=== PATIENT | male | born 1940 | race Caucasian/White ===

== ENCOUNTER → 2016-09-02 | Outpatient (CLI) | payer MEDICARE | END | disposition home or self-care (01) | LOC: GMA 10:30 | PROVIDERS: ATTEND Nurse Practitioner Family | DX: R53.83 Other fatigue (principal) ==

== ENCOUNTER 2017-05-10 14:34 | Emergency (ER) | payer MEDICARE ==
[2017-05-10] MEDS ORDERED: LIDOCAINE 1% 10 ML VIAL INJ ONE (14:58)
--- NOTE | 2017-05-10 15:28 | ED.PDOC ---
History of Present Illness - General Stated Complaint: Fall, laceration to left arm Time Seen by Provider: 05/10/17 15:26 Source: patient Exam Limitations: other - dementia - History of Present Illness Initial Comments: the patient is a 76-year-old male presenting to the emergency room after a fall in his backyard. The patient does have some dementia and some progressive weakness and dysfunction now any at home. The patient fell and apparently sustained a skin tear on a long that was on the ground. The skin tear is large and horseshoe shaped with a central laceration as well. See nurse 's note for length. This happened immediately prior to arrival. He has multiple much smaller abrasions to his elbows and fingers as well. He is ambulatory. He does have significant dementia. He does have significant hearing loss. The wound is moderately dirty. Allergies/Adverse Reactions: Allergies NO KNOWN ALLERGY Allergy (Unverified 07/30/14 09:36) Home Medications: Ambulatory Orders Citalopram Hydrobromide [CeleXA] 20 mg PO DAILY 05/10/17 Sulfa/Trimeth 800/160 (Ds) Tab [Bactrim DS Tab] 1 ea PO BID #14 tab 05/10/17 Review of Systems - Review of Systems Constitutional: States: no symptoms reported EENTM: States: no symptoms reported Respiratory: States: no symptoms reported Cardiology: States: no symptoms reported Gastrointestinal/Abdominal: States: no symptoms reported Genitourinary: States: no symptoms reported Musculoskeletal: States: no symptoms reported Skin: States: see HPI Neurological: States: see HPI Endocrine: States: no symptoms reported All other Systems: No Change from Baseline Past Medical History (General) - Patient Medical History Hx Seizures: No Hx Stroke: No Hx Dementia: No Hx Asthma: No Hx of COPD: Yes Hx Cardiac Disorders: Yes Hx Congestive Heart Failure: Yes Hx Pacemaker: No Hx Hypertension: Yes Hx Thyroid Disease: No Hx Diabetes: No Hx Gastroesophageal Reflux: No Hx Cancer: No Hx of HIV: No Hx Hepatitis C: No Hx MRSA: No - Vaccination History Hx Influenza Vaccination: Yes - 2017 Hx Pneumococcal Vaccination: - unknown - Social History Hx Tobacco Use: No Hx Alcohol Use: No Hx Substance Use: No Hx Substance Use Treatment: No Hx Depression: No Family Medical History - Family History Mother Family History: No Known Physical Exam - Physical Exam General Appearance: Alert, Comfortable, No apparent distress Eye Exam: bilateral normal Ears, Nose, Throat: normal pharynx, other - very poor hearing bilaterally Neck: full range of motion, supple Respiratory: normal breath sounds, no respiratory distress, no accessory muscle use Cardiovascular/Chest: normal peripheral pulses, no edema Peripheral Pulses: radial,right: 2+, radial,left: 2+ Extremity: normal range of motion, no pedal edema, normal capillary refill Neurologic: immigration coordinator II-XII nml as tested, alert, normal mood/affect, other - the patient has significant dementia and is confused on the date. He does recognize family members in the hospital. He does remember the fall. Skin Exam: other - laceration as per history of present illness. He does have some numbness surrounding the area as would be expected. Sensation in the hand appears grossly within normal limits. Function of the hand appears within normal limits. Comments: Vital Signs - 24 hr 05/10/17 14:50 Pulse Rate [ 87 Right Radial] Respiratory 20 Rate Blood Pressure 131/87 [Right Arm] O2 Sat by Pulse 97 Oximetry Progress - Progress Progress: 05/10/17 15:29 the patient is a 76-year-old male with a very large laceration to the dorsal aspect of his left forearm. After risks and benefits were explained to family did agree to proceed. The wound is irrigated with a liter of sterile saline. 1% lidocaine without epinephrine was used 10 cc for local 18anesthetic. Approximately 18 sutures of 4-0 Ethilon were used to reapproximation. Dressing was applied. Neosporin can be used topically several times daily to prevent drying of the skin edges and promote healing. Sutures will need to come out in approximately 10 days. The patient was given a dose of Bactrim here and will be placed on that for the next week. The patient was also given a tetanus shot. ER warnings were given for any significant worsening. The patient may get benefit from physical therapy as an outpatient to prevent further falls. Departure - Departure Clinical Impression: Laceration of forearm Qualifiers: Encounter type: initial encounter Laterality: left Qualified Code(s): S51.812A - Laceration without foreign body of left forearm, initial encounter Fall at home Qualifiers: Encounter type: initial encounter Qualified Code(s): W19.XXXA - Unspecified fall, initial encounter; Y92.099 - Unspecified place in other non-institutional residence as the place of occurrence of the external cause Disposition: Discharge to Home or Self Care Condition: Fair Diet: regular diet Activity: increase activity as tolerated Referrals: JAYMIE WATKINS [Primary Care Provider] - 1-2 Weeks Prescriptions: Sulfa/Trimeth 800/160 (Ds) Tab [Bactrim DS Tab] 1 ea PO BID #14 tab Home Medications: Ambulatory Orders Citalopram Hydrobromide [CeleXA] 20 mg PO DAILY 05/10/17 Sulfa/Trimeth 800/160 (Ds) Tab [Bactrim DS Tab] 1 ea PO BID #14 tab 05/10/17 Additional Instructions: the patient is a 76-year-old male with a very large laceration to the dorsal aspect of his left forearm. After risks and benefits were explained to family did agree to proceed. The wound is irrigated with a liter of sterile saline. 1% lidocaine without epinephrine was used 10 cc for local 18anesthetic. Approximately 18 sutures of 4-0 Ethilon were used to reapproximation. Dressing was applied. Neosporin can be used topically several times daily to prevent drying of the skin edges and promote healing. Sutures will need to come out in approximately 10 days. The patient was given a dose of Bactrim here and will be placed on that for the next week. The patient was also given a tetanus shot. ER warnings were given for any significant worsening. The patient may get benefit from physical therapy as an outpatient to prevent further falls.
[2017-05-10] MEDS ORDERED: SULFA/TRIMETH 800/160 (DS) TAB 1 EA TAB PO ONE (15:31)
[2017-05-10] MEDS ORDERED: TETANUS,DIPHTHERIA,PERTUSSIS 1 EA SYG IM ONE (15:31)
[2017-05-10 17:53] VITALS: BP 130/83; TEMP 97.2; O2SAT 98
== END 2017-05-10 15:55 | disposition home or self-care (01) ==
LOC: ER 14:34
DX: S51.812A Laceration without foreign body of left forearm, initial encounter (principal); I11.0 Hypertensive heart disease with heart failure; I50.9 Heart failure, unspecified; Z23 Encounter for immunization; F03.90 Unspecified dementia, unspecified severity, without behavioral disturbance, psychotic disturbance, mood disturbance, and anxiety; W18.09XA Striking against other object with subsequent fall, initial encounter; Y92.007 Garden or yard of unspecified non-institutional (private) residence as the place of occurrence of the external cause

== ENCOUNTER 2017-05-15 13:38 | Emergency (ER) | payer MEDICARE ==
--- NOTE | 2017-05-15 14:13 | ED.PDOC ---
History of Present Illness - General Chief Complaint: General Stated Complaint: frequent falls Time Seen by Provider: 05/15/17 14:08 Source: patient, family Exam Limitations: no limitations - History of Present Illness Initial Comments: Inocencio Ulloa 76 y/o male brought by EMS today fell on his left side at his house no head/neck pains but daughter stated he had been falling multiple times this week and was noted that his gait had been unsteady tends to fall easily..Fell friday and was brought here for skin tear.According to daughter has not been taking his medication regularly.Has history of cad-mi,gi bleed and depression.Denies syncopal episodes,dizziness,blurry vision. Timing/Duration: 1-3 hours Severity: moderate Improving Factors: nothing Worsening Factors: nothing Associated Symptoms: denies symptoms Allergies/Adverse Reactions: Allergies NO KNOWN ALLERGY Allergy (Unverified 07/30/14 09:36) Home Medications: Ambulatory Orders Sulfa/Trimeth 800/160 (Ds) Tab [Bactrim DS Tab] 1 ea PO BID #14 tab 05/10/17 Duloxetine HCl [Cymbalta] 60 mg PO DAILY 05/15/17 Tramadol HCl 50 mg PO TID PRN 05/15/17 Review of Systems - Review of Systems Constitutional: States: weakness EENTM: States: no symptoms reported Respiratory: States: no symptoms reported Cardiology: States: no symptoms reported Gastrointestinal/Abdominal: States: no symptoms reported Genitourinary: States: no symptoms reported Musculoskeletal: States: no symptoms reported Skin: States: no symptoms reported, change in color Neurological: States: see HPI Past Medical History (General) - Patient Medical History Hx Seizures: No Hx Stroke: No Hx Dementia: No Hx Asthma: No Hx of COPD: Yes Hx Cardiac Disorders: Yes Hx Congestive Heart Failure: Yes Hx Pacemaker: No Hx Hypertension: Yes Hx Thyroid Disease: No Hx Diabetes: No Hx Gastroesophageal Reflux: No Hx Cancer: No Hx of HIV: No Hx Hepatitis C: No Hx MRSA: No Hx Other PMH: Yes - GI BLEED Surgical History: other - colonoscopy/egd - Vaccination History Hx Influenza Vaccination: Yes - 2017 Hx Pneumococcal Vaccination: - unknown - Social History Hx Tobacco Use: Yes - quit 4 years ago Hx Alcohol Use: Yes - quit 8 years ago Hx Substance Use: No Hx Substance Use Treatment: No Hx Depression: No - Activities of Daily Living Patient Lives Alone: No - family Family Medical History - Family History Mother Family History: No Known Hx Cardiac Disease: Yes - dad Hx Family Diabetes: Yes - mom Physical Exam - Physical Exam General Appearance: Alert, Comfortable, No apparent distress Eye Exam: bilateral normal - PEPITO.EOMI, bilateral other - decrease vision both eyes Ears, Nose, Throat: normal pharynx, hearing decreased Neck: non-tender, full range of motion, supple, normal inspection Respiratory: chest non-tender, no respiratory distress, decreased breath sounds - both lungs Cardiovascular/Chest: regular rate, rhythm, no gallop, no murmur Peripheral Pulses: radial,right: 1+, radial,left: 1+, dorsalis pedis,right: 1+, dorsalis pedis,left: 1+ Gastrointestinal/Abdominal: normal bowel sounds, soft, no organomegaly, no pulsatile mass, tenderness - mid abdomen Rectal Exam: normal rectal tone, heme negative stool Back Exam: no CVA tenderness, no vertebral tenderness Extremity: no pedal edema, calf tenderness - left leg Neurologic: alert, normal mood/affect, oriented x 3 Skin Exam: normal color, warm/dry, other - healing skin laceratio arm left Lymphatic: no adenopathy Progress - Progress Progress: 05/15/17 15:11 Last Vital Signs Temp 99.2 F 05/15/17 13:42 Pulse 103 H 05/15/17 13:42 Resp 20 05/15/17 13:42 BP 128/74 05/15/17 13:42 Pulse Ox 95 05/15/17 13:42 - Results/Orders Results/Orders: Laboratory Tests 05/15/17 05/15/17 05/15/17 13:32 13:32 13:38 WBC 8.8 RBC 4.92 Hgb 14.6 Hct 43.7 MCV 88.8 MCH 29.6 MCHC 33.4 RDW 14.9 H Plt Count 225 MPV 8.3 Absolute Neuts (auto) 6.60 Absolute Lymphs (auto) 0.90 L Absolute Monos (auto) 1.10 H Absolute Eos (auto) 0.10 Absolute Basos (auto) 0.10 Neutrophils % 75.1 Lymphocytes % 9.7 L Monocytes % 13.0 H Eosinophils % 1.3 Basophils % 0.9 PT 13.3 H INR 1.180 PTT (SP) 38.4 H D-Dimer, Quantitative Sodium 134 L Potassium 3.4 L Chloride 100 L Carbon Dioxide 24 Anion Gap 13.4 BUN 22 H Creatinine 1.96 H BUN/Creatinine Ratio 11.2 Random Glucose 115 H Serum Osmolality 272.5 L Calcium 9.0 Total Bilirubin Direct Bilirubin Indirect Bilirubin AST ALT Alkaline Phosphatase Troponin I B-Natriuretic Peptide Serum Total Protein Albumin Lipase Urine Color Urine Appearance Urine pH Ur Specific [place] Urine Protein Urine Glucose (UA) Urine Ketones Urine Blood Urine Nitrite Urine Bilirubin Urine Urobilinogen Ur Leukocyte Esterase Urine RBC Urine WBC Ur Epithelial Cells Urine Bacteria Urine Mucus Stool Occult Blood Urine Opiates Screen Urine Barbiturates Ur Phencyclidine Scrn U Amphetamin/Meth Scrn U Benzodiazepines Scrn U Cocaine Metab Screen U Cannabinoids Screen 05/15/17 05/15/17 05/15/17 14:10 14:10 14:10 WBC RBC Hgb Hct MCV MCH MCHC RDW Plt Count MPV Absolute Neuts (auto) Absolute Lymphs (auto) Absolute Monos (auto) Absolute Eos (auto) Absolute Basos (auto) Neutrophils % Lymphocytes % Monocytes % Eosinophils % Basophils % PT INR PTT (SP) D-Dimer, Quantitative 2290 H* Sodium Potassium Chloride Carbon Dioxide Anion Gap BUN Creatinine BUN/Creatinine Ratio Random Glucose Serum Osmolality Calcium Total Bilirubin 2.2 H* Direct Bilirubin 0.5 H Indirect Bilirubin 1.7 H AST 81 H ALT 19 Alkaline Phosphatase 32 L Troponin I 0.09 H* B-Natriuretic Peptide Serum Total Protein 7.3 Albumin 3.6 Lipase Urine Color Urine Appearance Urine pH Ur Specific [place] Urine Protein Urine Glucose (UA) Urine Ketones Urine Blood Urine Nitrite Urine Bilirubin Urine Urobilinogen Ur Leukocyte Esterase Urine RBC Urine WBC Ur Epithelial Cells Urine Bacteria Urine Mucus Stool Occult Blood Urine Opiates Screen Urine Barbiturates Ur Phencyclidine Scrn U Amphetamin/Meth Scrn U Benzodiazepines Scrn U Cocaine Metab Screen U Cannabinoids Screen 05/15/17 05/15/17 05/15/17 14:10 15:23 15:35 WBC RBC Hgb Hct MCV MCH MCHC RDW Plt Count MPV Absolute Neuts (auto) Absolute Lymphs (auto) Absolute Monos (auto) Absolute Eos (auto) Absolute Basos (auto) Neutrophils % Lymphocytes % Monocytes % Eosinophils % Basophils % PT INR PTT (SP) D-Dimer, Quantitative Sodium Potassium Chloride Carbon Dioxide Anion Gap BUN Creatinine BUN/Creatinine Ratio Random Glucose Serum Osmolality Calcium Total Bilirubin Direct Bilirubin Indirect Bilirubin AST ALT Alkaline Phosphatase Troponin I B-Natriuretic Peptide Serum Total Protein Albumin Lipase 25 Urine Color Dk yellow Urine Appearance Clear Urine pH 6.0 Ur Specific [place] 1.025 Urine Protein 100 H Urine Glucose (UA) Negative Urine Ketones 15 H Urine Blood Moderate H Urine Nitrite Negative Urine Bilirubin Moderate Urine Urobilinogen 2.0 H Ur Leukocyte Esterase Negative Urine RBC 1-3 Urine WBC 1-3 Ur Epithelial Cells 1-3 Urine Bacteria Rare Urine Mucus Small Stool Occult Blood Urine Opiates Screen Positive H Urine Barbiturates Negative Ur Phencyclidine Scrn Negative U Amphetamin/Meth Scrn Negative U Benzodiazepines Scrn Negative U Cocaine Metab Screen Negative U Cannabinoids Screen Negative 05/15/17 05/15/17 05/15/17 15:35 15:59 16:39 WBC RBC Hgb Hct MCV MCH MCHC RDW Plt Count MPV Absolute Neuts (auto) Absolute Lymphs (auto) Absolute Monos (auto) Absolute Eos (auto) Absolute Basos (auto) Neutrophils % Lymphocytes % Monocytes % Eosinophils % Basophils % PT INR PTT (SP) D-Dimer, Quantitative Sodium Potassium Chloride Carbon Dioxide Anion Gap BUN Creatinine BUN/Creatinine Ratio Random Glucose Serum Osmolality Calcium Total Bilirubin Direct Bilirubin Indirect Bilirubin AST ALT Alkaline Phosphatase Troponin I 0.08 H* B-Natriuretic Peptide 449.0 H* Serum Total Protein Albumin Lipase Urine Color Urine Appearance Urine pH Ur Specific [place] Urine Protein Urine Glucose (UA) Urine Ketones Urine Blood Urine Nitrite Urine Bilirubin Urine Urobilinogen Ur Leukocyte Esterase Urine RBC Urine WBC Ur Epithelial Cells Urine Bacteria Urine Mucus Stool Occult Blood Negative Urine Opiates Screen Urine Barbiturates Ur Phencyclidine Scrn U Amphetamin/Meth Scrn U Benzodiazepines Scrn U Cocaine Metab Screen U Cannabinoids Screen - EKG/XRAY/CT EKG: Sinus, Tachy, nonspecific ST T wave Chg Comments: heart rate -101;PAC CT: abdomen/pelvis-4cm x 4.1 cm infrarenal aortic aneurysm CT Ordered: Yes - CTA-chest segmental /subsegmental PE harini.,copd Departure - Departure Clinical Impression: Frequent falls, NSTEMI (non-ST elevation myocardial infarction), Renal insufficiency Pulmonary embolus Qualifiers: Pulmonary embolism type: other Chronicity: unspecified Acute cor pulmonale presence: without acute cor pulmonale Qualified Code(s): I26.99 - Other pulmonary embolism without acute cor pulmonale Aortic aneurysm, abdominal Qualifiers: Presence of rupture: without rupture Qualified Code(s): I71.4 - Abdominal aortic aneurysm, without rupture Time of Disposition: 17:19 Disposition: Transfer to Hospital Condition: Fair Departure Forms: Patient Portal Self Enrollment Referrals: JAYMIE ULLOA [Primary Care Provider] - 1-2 Weeks Home Medications: Ambulatory Orders Sulfa/Trimeth 800/160 (Ds) Tab [Bactrim DS Tab] 1 ea PO BID #14 tab 05/10/17 Duloxetine HCl [Cymbalta] 60 mg PO DAILY 05/15/17 Tramadol HCl 50 mg PO TID PRN 05/15/17 Transfer to Outside Facility - Transfer Information Accepting Provider:: Dr. David Herbert Accepting Facility: [facility]
[2017-05-15] MEDS ORDERED: SODIUM CHLORIDE 0.9% 1000ML 1,000 ML IVS ONE ×2 (14:33→15:21)
--- NOTE | 2017-05-15 14:49 | CT ---
Study: CT of the Head. Indication: frequent falls Technique: Axial CT images of the head were acquired without intravenous contrast. This exam was performed according to our departmental dose-optimization program, which includes automated exposure control, adjustment of the mA and/or kV according to patient size and/or use of iterative reconstruction technique. Comparison: None. Findings: No CT evidence of acute ischemia, acute hemorrhage, mass, mass effect, midline shift, or extra-axial fluid collection. Ventricles are normal in configuration without hydrocephalus. Patchy hypoattenuation of the periventricular and subcortical white matter noted. This is nonspecific but most consistent with chronic microvascular ischemic change. Global parenchymal volume loss and intracranial atherosclerosis noted as well. Paranasal sinuses are adequately aerated. Mastoid air cells are adequately aerated. Osseous structures and soft tissues are unremarkable. Impression: 1. No CT evidence of acute intracranial abnormality. 2. Senescent changes. Electronically signed by: Angel Gomes MD 05/15/2017 2:47 PM DIGITIZER OPERATOR
--- NOTE | 2017-05-15 15:38 | RAD ---
EXAM DESCRIPTION: Chest,1 View CLINICAL HISTORY: 76 years Male, falls COMPARISON: July 30, 2014 TECHNIQUE: AP portable chest. FINDINGS: Lung volumes are small and the patient is rotated moderately towards the right. Prominent is slightly coarsened interstitial markings are likely related to the degree of inspiration. The aorta is calcified and tortuous and heart size is within the limits of normal. No pneumothorax or hemopneumothorax is evident. Rib fractures are not identified. IMPRESSION: Poor inspiration and rotation towards the right with no acute cardiac abnormality or pulmonary opacification Electronically signed by: Hayder Dang MD 05/15/2017 3:36 PM [facility]
--- NOTE | 2017-05-15 15:39 | RAD ---
EXAM DESCRIPTION: Knee,Left 2 or More Views CLINICAL HISTORY: 76 years, Male, falls COMPARISON: None TECHNIQUE: Two views of the left knee FINDINGS: The knee is normally aligned and mineralized. No fracture or deformity or destructive process is seen. No effusion or mass or foreign body is noted. Mild degenerative changes are evident. IMPRESSION: 1. Extensive vascular calcification, otherwise negative left knee Electronically signed by: Hayder Dang MD 05/15/2017 3:38 PM [facility]
--- NOTE | 2017-05-15 15:39 | RAD ---
EXAM DESCRIPTION: Knee,Right 2 or More Views CLINICAL HISTORY: 76 years, Male, falls COMPARISON: None TECHNIQUE: Two views of the right knee FINDINGS: The knee is normally aligned and mineralized. No fracture or deformity or destructive process is seen. No effusion or mass or foreign body is noted. Mild degenerative changes are evident. IMPRESSION: 1. Extensive vascular atherosclerosis, otherwise negative right knee Electronically signed by: aHyder Dang MD 05/15/2017 3:38 PM [facility]
--- NOTE | 2017-05-15 15:40 | RAD ---
EXAM DESCRIPTION: Pelvis CLINICAL HISTORY: 76 years Male, falls COMPARISON: None. FINDINGS: The bony pelvis is mildly degenerative and modestly osteopenic with extensive vascular calcification. No fracture or deformity is noted. IMPRESSION: Negative pelvis Electronically signed by: Hayder Dang MD 05/15/2017 3:39 PM FMD TEACHER
--- NOTE | 2017-05-15 15:52 | CT ---
EXAM DESCRIPTION: CTA Chest CLINICAL HISTORY: 76 years, Male, elevated d dimer COMPARISON: March 18, 2014 TECHNIQUE: Rapid bolus administration of nonionicIV contrast was performed with thin-section axial scanning of the chest performed in a dynamic fashion. Reconstructed multiplanar and three dimensional MIP and/or VRT images were created on a separate dedicated workstation were reviewed along with the source axial images and stored in the patient's medical record. Stenoses were evaluated using the NASCET criteria. This exam was performed according to our departmental dose-optimization program, which includes automated exposure control, adjustment of the mA and/or kV according to patient size and/or use of iterative reconstruction technique. FINDINGS: CT angiography of the chest demonstrates a normal appearance of the thoracic inlet and axillary regions abnormal mediastinal lymphadenopathy with numerous small superior mediastinal subcentimeter lymph nodes and enlarged 2 to 2.5 cm middle mediastinal pretracheal and right hilar lymphadenopathy is present. A metastatic or lymphomatous process should be considered. Extensive aortic and great vessel atherosclerotic calcification is noted. Marked emphysematous changes in the upper lung cruz with some pleural fibrotic changes particularly at the posterior right lung base is present. A peripheral pulmonary nodule to suggest primary malignancy in the lung field is not apparent. Tiny amount of right-sided pleural effusion is present. Satisfactory pulmonary vascular enhancement was achieved with the pulmonary outflow tract and main pulmonary arteries demonstrating no definite filling defects. Multiple small emboli in the left lower lobe pulmonary artery is present. Small embolus in a segmental branch of the right lower lobe is also apparent. A large saddle embolus or other abnormality is not apparent. IMPRESSION: 1. Bilateral small segmental and subsegmental emboli involving each lower lobe without a large embolic burden within the pulmonary vasculature. The main pulmonary arteries and lobar branches are clear. 2. Moderate abnormal hilar and middle mediastinal lymphadenopathy suggesting either a lymphomatous process or metastatic disease with smaller numerous normal and subcentimeter lymph nodes in the superior mediastinum. 3. 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 Electronically signed by: Hayder Dang MD 05/15/2017 3:50 PM CHIEF NURSING EXECUTIVE
[2017-05-15] MEDS ORDERED: HEPARIN PREMIX 500 ML ONE (16:51)
--- NOTE | 2017-05-15 16:51 | CT ---
EXAM DESCRIPTION: Abdoment/Pelvis w/o Contrast CLINICAL HISTORY: 76 years, 76 years, Male, Male, renal failure/abdominal pain COMPARISON: None. TECHNIQUE: CT of the abdomen and pelvis is performed according to our non contrast protocol This exam was performed according to our departmental dose-optimization program, which includes automated exposure control, adjustment of the mA and/or kV according to patient size and/or use of iterative reconstruction technique. 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 Abdominal imaging demonstrates residual contrast from CT angiography a recently performed with nondilated renal collecting systems. 4 x 4.1 cm infrarenal aortic aneurysm is present. There are surgical consultation should be considered as a well as 12 month follow-up for reassessment of this aneurysm. The liver is small and normal in size without focal mass. Small layering stones in the dependent portion of the gallbladder is noted without ductal dilation. A small normal spleen is present with moderate atrophic changes of the pancreas. The adrenal glands are normal. The kidneys are mildly atrophic but without severe cortical thinning and no evidence of hydronephrosis or cystic or solid mass on this study performed post CTA with residual contrast. Mcclure catheter in place with a contrast and air-filled bladder is noted. Mild prostatic enlargement is present. Small normal distal small bowel loops are present but mildly prominent more proximal small bowel loops suggest a partial obstruction. Normal amount of stool and air in the right and transverse colon is present. Acute abdominal or pelvic inflammatory changes are not apparent. The anterior abdominal wall is unremarkable. Extensive vascular calcification involving the femoral and iliac vessels is noted. Moderate superior endplate compression deformity of L1 estimated at 40% is present and age indeterminate without retropulsed bone. Sclerotic or destructive changes within the spine or pelvis are not apparent. IMPRESSION: 1. Residual contrast within the renal collecting systems and equilibrium enhancement of the solid organs with no evidence of renal obstruction or mass. 2. Mildly dilated fluid-filled proximal and mid small bowel loops with normal caliber distal loops suggesting a partial obstruction. 3. 4.1 cm infrarenal aortic aneurysm. Vascular surgical consultation recommended if this is not a finding that is already followed up. 12 month sonographic follow-up for stability recommended. 4. Basilar fibrotic lung disease. Incidental note of extensive coronary calcification. Electronically signed by: Hayder Dang MD 05/15/2017 4:50 PM ANIMAL TECH
[2017-05-15] MEDS ORDERED: HEPARIN PREMIX 25,000 UNITS in PREMIX BAG 1 BAG IVS SCH (17:00)
[2017-05-15 18:15] VITALS: BP 161/80; TEMP 97; O2SAT 95
== END 2017-05-15 17:50 | disposition short-term general hospital (02) ==
LOC: ER 13:38
DX: I21.4 Non-ST elevation (NSTEMI) myocardial infarction (principal); I26.99 Other pulmonary embolism without acute cor pulmonale; I71.4 Abdominal aortic aneurysm, without rupture; I11.0 Hypertensive heart disease with heart failure; I50.9 Heart failure, unspecified; Z91.81 History of falling; N28.9 Disorder of kidney and ureter, unspecified; Z87.891 Personal history of nicotine dependence; J44.9 Chronic obstructive pulmonary disease, unspecified
CPT/HCPCS: 36415; 70450; 71010; 71275; 72170; 73560; 74176; 80048; 80076; 80307; 81001; 82270; 83690; 83880; 84484; 85025; 85379; 85610; 85730; 93005; J1644; J7030

== ENCOUNTER → 2017-08-22 | Outpatient (CLI) | payer MEDICARE | LOC: GRHH 09:44 | PROVIDERS: ATTEND Emergency Medicine | DX: I50.22 Chronic systolic (congestive) heart failure (principal); I10 Essential (primary) hypertension; R30.0 Dysuria ==

== ENCOUNTER → 2017-08-27 | Outpatient (CLI) | payer MEDICARE ==
--- NOTE | 2017-08-28 09:47 | MRI ---
EXAM DESCRIPTION: Lumbar Spine w/o Contrast MRI. CLINICAL HISTORY: COMPRESSION FRACTURE COMPARISON: None. TECHNIQUE: Multiplanar, multiple standard sequences, non contrast MRI, lumbar spine. FINDINGS: Marrow edema in the L3 vertebral body extending into the bilateral pedicles more on the right than the left. Increased concavity of the superior endplate more than the inferior endplate. 2 mm superior retropulsion. L3-4 disc desiccated but no significant bulging. Bilateral flavum ligament hypertrophy. Mild canal narrowing. Mild bilateral foraminal narrowing. L2-3 minimal disc desiccation with no bulging. Bilateral flavum ligament hypertrophy and minimal arthrosis right facet. Mild canal narrowing. Bilateral foramina are patent. L5-S1: Anterior endplate ridging. Disc space almost absent except midline into the right of midline. Modic type III endplate reactive changes. Posterior disc osteophyte complex bulging 4 mm encroaching on the thecal sac and the descending bilateral S1 nerves in the upper subarticular recesses which are mildly flattened. AP canal diameter 9 mm. Bilateral mild facet arthrosis. Bilateral borderline foraminal stenosis. L4-5: Disc desiccation and trace anterolisthesis. Posterior disc space narrowing. Bilateral moderate facet arthrosis and flavum ligament hypertrophy. Facets are almost oriented in the sagittal plane. Posterior broad-based disc bulge with bright T2 annular fissure, 4 to 5 mm with bilateral subarticular recess stenosis, abutting the bilateral descending L5 nerves. AP canal diameter 6 mm. Minimal disc bulge into the left foramen with mild foraminal narrowing. Disc bulge in the right foramen with moderate narrowing. L1-2: Disc desiccation and anterior bulge and endplate ridging. Tiny posterior disc bulge 4 mm to the right of midline, with bright T2 annular fissure Mild canal narrowing. Minimal flavum ligament hypertrophy. Trace retrolisthesis. Mild left foraminal narrowing and moderate right foraminal narrowing. Central and anterior depression of the L1 vertebral body. No marrow edema in the body or the pedicles. Trace retrolisthesis of the inferior endplate. Focal bright T1 and T2 signal in the inferior L1 endplate not seen on the inversion recovery sequence. T12-L1 disc desiccation with mild bilateral foraminal narrowing. Minimal flavum ligament hypertrophy with normal facets. Paravertebral soft tissues no muscle atrophy.. Normal marrow signal in the remaining vertebral bodies and the posterior elements. Remaining Vertebral bodies are not compressed. Aneurysm of the abdominal aorta anterior to the L3 vertebral body measuring 3.9 cm transverse and 3.3 cm AP. IMPRESSION: 1. Approximately 25% compression type vertebral body fracture of the L3 vertebral body affecting the superior endplate more than the inferior endplate. 2 mm retropulsion near the superior endplate. No canal stenosis. No foraminal stenosis at L2-3 or L3-4. 2. Old compression fracture central and anterior L1 vertebral body to a similar degree but an old injury with no marrow edema. Minimal retropulsion. No canal or foraminal stenosis at L1 or involving the T12-L1 foramina or the L1-2 foramina. Posterior right paracentral L1-2 disc bulge with annular fissure. 3. Advanced spondylosis L5-S1 with disc space almost absent. Posterior disc osteophyte complex encroaching on the thecal sac in the descending bilateral S1 nerves with bilateral flattening of the subarticular recesses. Mild central canal stenosis. Bilateral borderline foraminal stenosis. 4. L4-5 disc bulge and annular fissure. Multicentric severe central canal stenosis. Bilateral subarticular recess stenosis. Correlate for bilateral L5 radiculopathy Foramina are not stenotic. 5. 3.9 x 3.3 cm abdominal aortic aneurysm at the level of the L3 vertebral body. Recommend follow-up with abdominal aortic ultrasound of the aorta and iliac vessels. Electronically signed by: Oleg De Leon MD 08/28/2017 9:46 AM [employer]
== END ==
LOC: MRI 13:00
PROVIDERS: ATTEND Emergency Medicine
DX: M84.60 Pathological fracture in other disease, unspecified site (principal); I26.99 Other pulmonary embolism without acute cor pulmonale

== ENCOUNTER 2017-09-08 19:53 | Emergency (ER) | payer MEDICARE ==
[2017-09-08] MEDS ORDERED: CHLORHEXIDINE GLUCONATE 4 % 15 ML UD TOP ONE (20:14)
[2017-09-08 20:42] VITALS: TEMP 99.7
[2017-09-08] MEDS ORDERED: LIDOCAINE 1% W/ EPINEPHRINE 20 ML VIAL INJ ONE (21:06)
--- NOTE | 2017-09-08 21:39 | ED.PDOC ---
History of Present Illness - General Chief Complaint: Laceration Stated Complaint: dog jumped on him causing skin laceration Time Seen by Provider: 09/08/17 21:03 Source: patient Exam Limitations: no limitations - History of Present Illness Initial Comments: Inocencio Ulloa 77 y/o male stated his dog jump up on him and nails clawed into his right hand causing skin laceration and avulsion in part of his skin.No history of fall. Timing/Duration: just prior to arrival Severity: moderate Location: hands - right Improving Factors: nothing Worsening Factors: nothing Associated Symptoms: other - see hpi Allergies/Adverse Reactions: Allergies NO KNOWN ALLERGY Allergy (Verified 09/08/17 20:42) Home Medications: Ambulatory Orders Sulfa/Trimeth 800/160 (Ds) Tab [Bactrim DS Tab] 1 ea PO BID #14 tab 05/10/17 Duloxetine HCl [Cymbalta] 60 mg PO DAILY 05/15/17 Tramadol HCl 50 mg PO TID PRN 05/15/17 Amoxicillin [Amoxil] 1,000 mg PO BID #30 cap 09/08/17 Review of Systems - Review of Systems Constitutional: States: no symptoms reported EENTM: States: no symptoms reported Respiratory: States: no symptoms reported Cardiology: States: no symptoms reported Skin: States: see HPI, other - laceration All other Systems: Reviewed and Negative, No Change from Baseline Past Medical History (General) - Patient Medical History Hx Seizures: No Hx Stroke: No Hx Dementia: Yes Hx Asthma: No Hx of COPD: Yes Hx Cardiac Disorders: Yes - triple A Hx Congestive Heart Failure: Yes Hx Pacemaker: No Hx Hypertension: Yes Hx Thyroid Disease: No Hx Diabetes: No Hx Gastroesophageal Reflux: No Hx Renal Disease: No 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 Hx of HIV: No Hx Hepatitis C: No Hx MRSA: No Surgical History: other - colonoscopy /egd - Vaccination History Hx Tetanus, Diphtheria Vaccination: Yes - UTD Hx Influenza Vaccination: Yes - 2017 Hx Pneumococcal Vaccination: - unknown - Social History Hx Tobacco Use: Yes - quit 4 years ago Hx Alcohol Use: Yes - quit 8 years ago Hx Substance Use: No Hx Substance Use Treatment: No Hx Depression: No - Activities of Daily Living Grooming Ability: Standby Assistance Eating (Feeding) Ability: Moderate Assistance Toileting Ability: Moderate Assistance Family Medical History - Family History Mother Family History: No Known Hx Cardiac Disease: Yes - dad Hx Family Diabetes: Yes - mom Physical Exam - Physical Exam General Appearance: Alert, Comfortable, No apparent distress Eyes, Ears, Nose, Throat Exam: PERRL/EOMI, normal ENT inspection, other - hard of hearing Neck: non-tender, full range of motion, supple Cardiovascular/Chest: normal peripheral pulses, regular rate, rhythm, no murmur Respiratory: chest non-tender, lungs clear, normal breath sounds Gastrointestinal/Abdominal: normal bowel sounds, non tender, soft, no organomegaly Extremity: no pedal edema, no calf tenderness Neurologic: alert, oriented x 3 Skin Exam: warm/dry, normal color Skin Problem Location: other - right hand laceration,with partial skin loss Skin Character: other - laceration Progress - Progress Progress: 09/08/17 21:42 Vital Signs - 24 hr 09/08/17 19:55 Temperature 99.7 F H Pulse Rate [ 107 H monitor] Respiratory 16 Rate Blood Pressure 130/78 [Right Arm] O2 Sat by Pulse 98 Oximetry Procedures - Laceration/Wound Repair Right Hand Wound Length (cm): 2 - dorsal aspect Wound's Depth, Shape: superficial, irregular, flap Wound Explored: no foreign body removed Irrigated w/ Saline (cc's): 30 Betadine Prep?: No - hibiclens Anesthesia: Lidocaine w/ Epi Volume Anesthetic (cc's): 5 Wound Repaired With: sutures Suture Size/Type: 4:0, vicryl rapide Number of Sutures: 3 Layer Closure?: No Sterile Dressing Applied?: Yes Departure - Departure Clinical Impression: Laceration of hand Qualifiers: Encounter type: initial encounter Foreign body presence: without foreign body Laterality: right Qualified Code(s): S61.411A - Laceration without foreign body of right hand, initial encounter Time of Disposition: 21:46 Disposition: Discharge to Home or Self Care Condition: Fair Departure Forms: ED Discharge - Pt. Copy, Patient Portal Self Enrollment Instructions: How to Care for a Laceration After Repair, DI for Laceration Repair Referrals: JAYMIE ULLOA [Primary Care Provider] - 1-2 Weeks Prescriptions: Amoxicillin [Amoxil] 1,000 mg PO BID #30 cap Home Medications: Ambulatory Orders Sulfa/Trimeth 800/160 (Ds) Tab [Bactrim DS Tab] 1 ea PO BID #14 tab 05/10/17 Duloxetine HCl [Cymbalta] 60 mg PO DAILY 05/15/17 Tramadol HCl 50 mg PO TID PRN 05/15/17 Amoxicillin [Amoxil] 1,000 mg PO BID #30 cap 09/08/17 Additional Instructions: Elevate right hand 20 degrees at bedtime;Follow up with primary Md 09/18/2017; Continue with all home meds.
[2017-09-08] MEDS ORDERED: AMOXICILLIN 500 MG CAP PO ONE (21:46)
[2017-09-08 22:13] VITALS: BP 106/77; O2SAT 97
== END 2017-09-08 22:18 | disposition home or self-care (01) ==
LOC: ER 19:53
DX: S61.411A Laceration without foreign body of right hand, initial encounter (principal); I11.0 Hypertensive heart disease with heart failure; I50.9 Heart failure, unspecified; Z87.891 Personal history of nicotine dependence; W45.8XXA Other foreign body or object entering through skin, initial encounter